=== PATIENT | male | born 1945 | race Caucasian/White ===

== ENCOUNTER 2016-08-26 08:35 | Day surgery (SDC) | payer MEDICARE, MEDICAID ==
[~2016-08-26] VITALS: Ht 165.1 cm; Wt 72.1 kg
[~2016-08-26 08:35] MED LIST: ASPI-973 PO; BENA40TA2 PO; HYDR25TA4 PO; MULT-1018 PO; OMEG1CAP25 PO; Sodium Chloride LOK Flush 10 mL Syringe IV PRN; TAMS0.4C98 PO; fentaNYL-PF 50 mCg/mL 2 mL Inj IVPUSH PRN
[2016-08-26 09:04] VITALS: BP 128/72; PULSE 43; RESP 16; O2SAT 94
[2016-08-26] MEDS: 0.9% Sodium Chloride 1,000 ML IV SCH ×3 (09:16→10:14)
[2016-08-26 10:18] VITALS: BP 93/42; PULSE 48; RESP 14; O2SAT 97
[2016-08-26 10:33] VITALS: BP 108/56; PULSE 56; RESP 12; O2SAT 97
--- NOTE | 2016-08-26 10:40 | ENDO ---
[address] [address] ENDOSCOPY PROCEDURE PATIENT: ASTRID CASTREJON : 1945 MR#: [id number] ADMIT: 08/26/2016 JOB ID: [id number] PROCEDURE: Colonoscopy. INDICATION: Positive occult stool blood test. Patient's ASA classification is two. Mallampati score is two. MEDICATIONS: 1. Versed 3 mg. 2. Fentanyl 50 mcg. INSTRUMENT USED: PCF-H180AL PREP QUALITY: Good. PROCEDURE DETAILS: After informed consent was obtained, the patient was brought to the GI suite, where he was placed on oxygen via nasal cannula and monitored with continuous pulse oximeter, telemetry, and blood pressure monitoring. A time-out was performed. Then, he was placed in a left lateral decubitus position. Medications were administered for sedation. Digital rectal exam was performed, which revealed an enlarged prostate, but otherwise normal rectal exam. The colonoscope was then inserted into the rectum and advanced under direct visualization to the cecum, which was identified by the presence of the ileocecal valve and appendiceal orifice. Once the cecum was reached, the colonoscope was withdrawn back into the rectum as the mucosa and lumen were examined. In the rectum, retroflexion was performed. Following retroflexion, remaining air in the rectum was suctioned, and procedure was completed. FINDINGS: 1. In the cecum there were two polyps, one was a diminutive polyp that was removed with cold biopsy forceps. Another measured approximately 4 mm and was removed with a cold snare. 2. In the transverse colon, there was a 4 mm polyp that was removed with a cold snare. 3. In the sigmoid colon, there was an approximately 5 cm sessile polyp that was removed with a hot snare. IMPRESSION: 1. Two cecal polyps. 2. Transverse colon polyp. 3. Sigmoid polyp. RECOMMENDATIONS: 1. Avoid NSAIDs and anticoagulants for 72 hours. 2. Repeat colonoscopy in three years. 3. Follow up in GI clinic. COMPLICATIONS: None. ESTIMATED BLOOD LOSS: Less than 5 mL.
--- NOTE | 2016-08-27 14:26 | PATH ---
SURGICAL PATHOLOGY Attending Physician:Christian Farr CASE STATUS: Signed Out PATIENT NAME: ASTRID CASTREJON PID: [id number] : 1945 DATE COLLECTED:08/26/2016 22:17 SPECIMEN: 1: Colon, Polyp 2: Colon, Polyp 3: Colon, Polyp CLINICAL HISTORY: 1). TRANSVERSE COLON POLYP 2). CECUM POLYP 3). SIGMOID COLON POLYP FINAL DIAGNOSIS: 1.TRANSVERSE COLON POLYP: TUBULAR ADENOMA. 2.CECUM POLYP: TUBULAR ADENOMA INVOLVING SINGLE BIOPSY FRAGMENT. 3.SIGMOID COLON POLYP: TUBULAR ADENOMA. ICD10 D12.3 GROSS DESCRIPTION: The specimen is received in three formalin filled containers labeled with the patient's name. 1). The specimen is sublabeled "transverse colon polyp" and consists of a 0.3 x 0.2 x 0.2 CM portion of tissue which is entirely submitted in cassette 1A. 2). The specimen is sublabeled "cecum polyp" and consists of 4 portions of tissue which aggregate to 0.5 x 0.4 x 0.3 CM. The specimen is entirely submitted in cassette 2A. 3). The specimen is sublabeled "sigmoid colon polyp" and consists of a 0.3 x 0.3 x 0.2 CM portion of tissue which is entirely submitted in cassette 3A. 08/26/2016 DAC MICRO DESCRIPTION: See diagnosis. ICD-9 CODES: CPT CODES: 1: 64146 2: 62643 3: 42068 Electronically Signed Out Mac Rocha MD [facility] Pathology [facility] [address] [facility], [place] [address] Technical component performed at [facility], [facility] [address], [address]
== END 2016-08-26 23:59 | disposition home or self-care (01) ==
LOC: END 08:35
PROVIDERS: ATTEND Internal Medicine Gastroenterology
DX: Z12.11 Encounter for screening for malignant neoplasm of colon (principal); D12.0 Benign neoplasm of cecum; D12.3 Benign neoplasm of transverse colon; D12.5 Benign neoplasm of sigmoid colon; N40.1 Benign prostatic hyperplasia with lower urinary tract symptoms; E78.5 Hyperlipidemia, unspecified; I10 Essential (primary) hypertension; R33.9 Retention of urine, unspecified; R00.2 Palpitations; Z79.82 Long term (current) use of aspirin
CPT/HCPCS: 45380; 45385; G0500; J7030